=== PATIENT | male | born 1950 | race Caucasian/White ===

== ENCOUNTER 2016-11-14 08:34 | Day surgery (SDC) | payer OTHER ==
[~2016-11-14] VITALS: Ht 177.8 cm; Wt 109.1 kg
[~2016-11-14 08:34] MED LIST: LIDODERM5 % TOP; NEURONTIN100 MG PO
--- NOTE | 2016-11-14 09:23 | NUR ---
PATIENT ASSESSMENT AND MED/ALLERGY REVIEW COMPLETE. VITALS STABLE. EKG OBTAINED. CONSENT SIGNED BY PATIENT AND WITNESSED BY RN. IV STARTED IN R HAND WITH 1 ATTEMPT. LR INFUSING ON PUMP. PREOP INSTRUCTIONS DISCUSSED. QUESTIONS ENCOURAGED AND ANSWERED BY RN. WILL CONTINUE TO MONITOR.
--- NOTE | 2016-11-14 11:18 | NUR ---
REC'D FROM OR; SPONT RESP.REPOSITIONED ONTO BACK PER PT REQUEST. HOB ELEVATED 40 DEGREES. INSTRUCTED TO PASS FLATUS IL NEEDED.
--- NOTE | 2016-11-14 11:36 | Provider's Discharge Care Plan ---
Problem, Goal, Plan Problem List 1. Colon polyp
--- NOTE | 2016-11-14 11:36 | Provider's Discharge Care Plan ---
Problem, Goal, Plan Problem List 1. Colon polyp
--- NOTE | 2016-11-14 11:56 | NUR ---
PATIENT BACK FROM OR. VITALS STABLE. PASSING GAS. TOLERATING PO INTAKE WITHOUT NAUSEA. WILL CONTINUE TO MONITOR.
--- NOTE | 2016-11-14 12:32 | NUR ---
PATIENT DEPARTED AT 1229. VITALS STABLE. IV DISCONTINUED. DISCHARGE INSTRUCTIONS DISCUSSED, INCLUDING SIGNS/SYMPTOMS TO REPORT. PATIENT AND VERBALIZED GOOD UNDERSTANDING OF DISCHARGE INSTRUCTIONS UPON DEPARTURE. PATIENT LEFT IN WHEELCHAIR, WITH HIS , WHO IS HIS RIDE.
--- NOTE | 2016-11-15 09:23 | OPERATIVE REPORT ---
DATE OF SURGERY: 11/14/2016 SURGEON: JEREMIAH DEVINE M.D. PREOPERATIVE DIAGNOSIS: 1. History of colon polyps. POSTOPERATIVE DIAGNOSIS: 1. Colon polyp. PROCEDURE PERFORMED: 1. Colonoscopy with snare polypectomy. ANESTHESIA: Total IV general. INDICATIONS: The patient is a 66-year-old man presenting with a previous history of colon polyps. SURGICAL TECHNIQUE: The patient was taken to the endoscopy suite where total IV general was administered and the patient placed in the left lateral decubitus position. The well lubricated colonoscope was advanced the length of the colon under direct vision. During insertion of the colonoscope, there was a single sessile polyp about 4 mm in diameter seen at about 80 cm or in the distal transverse colon. Cautery snare was passed around the polyp. It was gently closed and pinched off the polyp in its entirety before cautery could be applied. The polyp tissue was recovered and submitted for histopathology. The rest of the colon was inspected including a view of the cecum. There were no additional polyps or tumors seen. On withdrawal, the entire colon was reinspected. A retroflexed view of the rectum was also obtained. The patient left in good condition. There were no intraoperative complications encountered.
== END 2016-11-14 12:29 | disposition home or self-care (01) ==
LOC: SCU SRH 08:34 → OR SRH 08:34
PROVIDERS: Surgery
PROC: 0DBL8ZX Excision of Transverse Colon, Via Natural or Artificial Opening Endoscopic, Diagnostic (ICD-10-PCS; principal; 2016-11-14 11:00)
DX: Z12.11 Encounter for screening for malignant neoplasm of colon (principal); Z86.010 Personal history of colon polyps; K63.5 Polyp of colon; Z80.0 Family history of malignant neoplasm of digestive organs; G82.50 Quadriplegia, unspecified
CPT/HCPCS: 29229; 29240; 50004; 60001; 82900; 83526